=== PATIENT | female | born 1980 | race African-American/Black ===

== ENCOUNTER 2020-11-26 13:31 | Emergency (ER) | payer OTHER ==
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
--- NOTE | 2020-11-26 14:36 | EDPHYS ---
Physician Documentation [facility] Name: Zulema Simpson Age: 40 yrs Sex: Female : 1980 Arrival Date: 11/26/2020 Time: 13:46 Bed 13 Private MD: ED Physician Hansel Owen HPI: 11/26 14:31 This 40 yrs old Black Female presents to ER via Ambulatory with complaints of Finger jr8 Injury. 14:31 The patient or guardian reports decreased range of motion, pain. The complaints affect jr8 the DIP of left little finger and MCP of left little finger. Context: The problem was sustained at work. Onset: The symptoms/episode began/occurred acutely. Modifying factors: The symptoms are alleviated by nothing, the symptoms are aggravated by movement. Associated signs and symptoms: The patient has no apparent associated signs or symptoms. Severity of symptoms: At their worst the symptoms were mild, in the emergency department the symptoms are unchanged. The patient has not experienced similar symptoms in the past. The patient has not recently seen a physician. Stated that she fell down the stairs jamming her finger. Denies hitting head or neck. Denies pain anywhere else . Historical: - Allergies: 13:48 No Known Allergies; ss - Home Meds: 13:48 losartan oral oral [Active]; ss - PMHx: 13:48 Hypertension; ss - PSHx: 13:48 None; ss - Immunization history:: Adult Immunizations up to date. - Social history:: Smoking status: Patient denies any tobacco usage or history of. ROS: 14:31 Eyes: Negative for injury, pain, redness, and discharge, ENT: Negative for injury, jr8 pain, and discharge, Neck: Negative for injury, pain, and swelling, Cardiovascular: Negative for chest pain, palpitations, and edema, Respiratory: Negative for shortness of breath, cough, wheezing, and pleuritic chest pain, Abdomen/GI: Negative for abdominal pain, nausea, vomiting, diarrhea, and constipation, Back: Negative for injury and pain, Skin: Negative for injury, rash, and discoloration, Neuro: Negative for headache, weakness, numbness, tingling, and seizure. 14:31 MS/extremity: Positive for decreased range of motion, pain, tenderness, of the left little finger. Exam: 14:31 Constitutional: This is a well developed, well nourished patient who is awake, alert, jr8 and in no acute distress. Cardiovascular: Regular rate and rhythm with a normal S1 and S2. No gallops, murmurs, or rubs. Normal PMI, no JVD. No pulse deficits. Respiratory: Lungs have equal breath sounds bilaterally, clear to auscultation and percussion. No rales, rhonchi or wheezes noted. No increased work of breathing, no retractions or nasal flaring. Skin: Warm, dry with normal turgor. Normal color with no rashes, no lesions, and no evidence of cellulitis. Neuro: Awake and alert, GCS 15, oriented to person, place, time, and situation. Cranial nerves II-XII grossly intact. Motor strength 5/5 in all extremities. Sensory grossly intact. Cerebellar exam normal. Normal gait. 14:31 Musculoskeletal/extremity: Extremities: grossly normal except: noted in the left hand: Patient has flexion of the DIP to the 5th digit noted that is not baseline for patient. Tender to the PIP and MTP with decreased passive ROM. Full ROM with normal sensation and cap refill present . Vital Signs: 13:46 BP 119 / 63; Pulse 65; Resp 14; Temp 97.5(TE); Pulse Ox 98% on R/A; Weight 92.53 kg; ss Height 5 ft. 7 in. (170.18 cm); Pain 3/10; 13:46 Body Mass Index 31.95 (92.53 kg, 170.18 cm) Procedures: 14:31 Splinting: Splint applied to left little finger using finger splint, applied by nurse. jr8 Examined by me, post splint application: neurovascular intact, 2+ distal pulses palpable, brisk capillary refill noted, Patient tolerated well. MDM: 14:17 Patient medically screened. jr8 14:31 Data reviewed: vital signs, nurses notes, radiologic studies, plain films. Data jr8 interpreted: Pulse oximetry: on room air is 98 %. Interpretation: normal. Counseling: I had a detailed discussion with the patient and/or guardian regarding: the historical points, exam findings, and any diagnostic results supporting the discharge/admit diagnosis, radiology results, the need for outpatient follow up, a hand specialist, to return to the emergency department if symptoms worsen or persist or if there are any questions or concerns that arise at home. 05/01 13:49 Order name: XRAY Hand LEFT 3 View ss Administered Medications: No medications were administered Disposition: 15:12 Co-signature as Attending Physician, Hansel Owen MD. rn Disposition: 11/26/20 14:35 Discharged to Home. Impression: Sprain of interphalangeal joint of left little finger, Mallet finger. - Condition is Stable. - Discharge Instructions: Mallet Finger. - Prescriptions for Ibuprofen 800 mg Oral Tablet - take 1 tablet by ORAL route every 12 hours As needed take with food; 20 tablet. - Medication Reconciliation Form, Thank You Letter, Antibiotic Education, Prescription Opioid Use form. - Work release form (11/26/20 14:57). eb - Follow up: Mehdi Gutiérrez MD; When: 2 - 3 days; Reason: Recheck today's complaints, Continuance of care, Re-evaluation by your physician. - Problem is new. - Symptoms have improved. Signatures: Dispatcher [employer] EDMS Hansel Owen MD MD rn Smirch, Shelby, RN RN ss Roszak, Josh, PA PA jrAngi Howe RN RN zb Botello, Elizabeth eb Corrections: (The following items were deleted from the chart) 14:50 14:35 11/26/2020 14:35 Discharged to Home. Impression: Sprain of interphalangeal joint zb of left little finger; Mallet finger. Condition is Stable. Forms are Medication Reconciliation Form, Thank You Letter, Antibiotic Education, Prescription Opioid Use. Follow up: Mehdi Gutiérrez; When: 2 - 3 days; Reason: Recheck today's complaints, Continuance of care, Re-evaluation by your physician. Problem is new. Symptoms have improved. jr8
--- NOTE | 2020-11-26 14:36 | ER ---
Nurse's Notes [facility] Name: Zulema Simpson Age: 40 yrs Sex: Female : 1980 Arrival Date: 11/26/2020 Time: 13:46 Bed 13 Private MD: Diagnosis: Sprain of interphalangeal joint of left little finger;Mallet finger Presentation: 11/26 13:46 Chief complaint: Patient states: L fifth finger pain after slipping and falling at work ss around 1130 today. No obvious deformity noted. Coronavirus screen: Client denies travel out of the [place] in the last 14 days. Ebola Screen: Patient denies exposure to infectious person. Patient denies travel to an Ebola-affected area in the 21 days before illness onset. Initial Sepsis Screen: Does the patient meet any 2 criteria? No. Patient's initial sepsis screen is negative. Does the patient have a suspected source of infection? No. Patient's initial sepsis screen is negative. Risk Assessment: Do you want to hurt yourself or someone else? Patient reports no desire to harm self or others. Onset of symptoms was November 26, 2020. 13:46 Method Of Arrival: Ambulatory ss 13:46 Acuity: RAMY 4 ss Triage Assessment: 14:29 Injury Description: fall. zb Historical: - Allergies: 13:48 No Known Allergies; ss - Home Meds: 13:48 losartan oral oral [Active]; ss - PMHx: 13:48 Hypertension; ss - PSHx: 13:48 None; ss - Immunization history:: Adult Immunizations up to date. - Social history:: Smoking status: Patient denies any tobacco usage or history of. Screenin:29 Abuse screen: Denies threats or abuse. Denies injuries from another. Nutritional zb screening: No deficits noted. Tuberculosis screening: No symptoms or risk factors identified. Fall Risk None identified. Assessment: 14:25 Reassessment: ecp at bedside. zb 14:27 Reassessment:. General: Appears in no apparent distress. uncomfortable, Behavior is zb calm, cooperative, appropriate for age. Pain: Complains of pain in left little finger, dorsal aspect of middle phalanx of left little finger and dorsal aspect of proximal phalanx of left little finger Pain currently is 3 out of 10 on a pain scale. Quality of pain is described as sharp, shooting. Neuro: Level of Consciousness is awake, alert, obeys commands, Oriented to person, place, time, Gait is steady. Cardiovascular: Patient's skin is warm and dry. Respiratory: Airway is patent Respiratory effort is even, unlabored, Respiratory pattern is regular, agonal. Derm: Skin is intact, is healthy with good turgor. Musculoskeletal: Amputation of . Range of motion: intact in all extremities. 14:49 Reassessment: splint applied. d/c instructions given to patient. gait even and steady zb patient ambulated. out. Vital Signs: 13:46 BP 119 / 63; Pulse 65; Resp 14; Temp 97.5(TE); Pulse Ox 98% on R/A; Weight 92.53 kg; ss Height 5 ft. 7 in. (170.18 cm); Pain 3/10; 13:46 Body Mass Index 31.95 (92.53 kg, 170.18 cm) ED Course: 13:46 Patient arrived in ED. ss 13:47 Triage completed. ss 13:48 Arm band placed on right wrist. ss 14:07 XRAY Hand LEFT 3 View In Process Unspecified. EDCO 14:16 Juan Tao PA is PHCP. jr8 14:17 Hansel Owen MD is Attending Physician. jr8 14:22 Angi Almeida RN is Primary Nurse. zb 14:29 Patient has correct armband on for positive identification. Call light in reach. Side zb rails up X 1. Adult w/ patient. Door closed. Noise minimized. 14:34 Mehdi Gutiérrez MD is Referral Physician. jr8 14:49 No provider procedures requiring assistance completed. Patient did not have IV access zb during this emergency room visit. Administered Medications: No medications were administered Outcome: 14:35 Discharge ordered by . jr8 14:49 Discharged to home ambulatory. zb 14:49 Condition: stable 14:49 Discharge instructions given to patient, family, Instructed on discharge instructions, follow up and referral plans. medication usage, Demonstrated understanding of instructions, follow-up care, medications, Prescriptions given X 1. 14:50 Patient left the ED. zb Signatures: Dispatcher [facility] Blank Colmenares RN RN Juan Tao PA PA jr8 Angi Almeida, RN RN zb
--- NOTE | 2020-11-26 14:54 | RAD REPORT ---
EXAM DESCRIPTION: RAD - Hand Left 3 View - 11/26/2020 2:10 pm CLINICAL HISTORY: PAIN, trauma to left fifth digit COMPARISON: None. FINDINGS: No fracture, dislocation or periosteal reaction noted. IP joint space narrowing is present in the left hand more notable in the fifth digit. Spurring changes are present without erosion. MCP joint spaces are normal. No acute or pathologic bone or joint finding. No foreign body or other soft tissue abnormality. IMPRESSION: Left hand degenerative change as detailed. No fracture or acute finding.
[2020-11-26 14:57] VITALS: BP 119/63; TEMP 97.5; O2SAT 98
== END 2020-11-26 14:50 | disposition home or self-care (01) ==
LOC: ER 13:31
DX: S63.637A Sprain of interphalangeal joint of left little finger, initial encounter (principal); M20.012 Mallet finger of left finger(s); W10.8XXA Fall (on) (from) other stairs and steps, initial encounter; Y93.01 Activity, walking, marching and hiking; Y92.89 Other specified places as the place of occurrence of the external cause; Y99.8 Other external cause status; I10 Essential (primary) hypertension
CPT/HCPCS: 99283

== ENCOUNTER 2022-08-03 02:05 | Emergency (ER) | payer BC, OTHER ==
--- OUTSIDE RECORDS SUMMARY | 2022-08-03 02:09 | XMS REPORT | Continuity of Care Document ---
:1980 Author Organization [facility] t Address [address] [place] [address] [place] [id number] Care Team Providers Name Role Phone GIAN SON Primary Care Physician Unavailable SHARONA BRYAN Attending Clinician Unavailable Tory Gould Attending Clinician Casie Diaz RN Attending Clinician Unavailable TORY BRYSON Attending Clinician Unavailable Og Peck Attending Clinician Doctor Unassigned, [place] Attending Clinician Unavailable JIGNESH MONTANEZ MD Attending Clinician Payers Payer Name Policy Type Policy Effective Date Expiration Date Sour ce Number [facility] [id number] 2020 [employer] 00:00:[address] [facility] EFRA CARE NA 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 [facility] Anxiety Anxiety Problem Active [place] Memoria [...] lle strain strain [facility]ita [facility] No known No known Disease Unive rs active active ity of problems problems [facility] Allergies, Adverse Reactions, Alerts Allergy Allergy Status Severity Reaction(s) Onset Inactive Treating Comm ents Source Name Type Date Date Clinician NO KNOWN Drug Active Univers ALLERGIE Class ity of S [facility] NO KNOWN Allergy Active [facility] Social History Social Habit Start Date Stop Date Quantity Comments Source History SDOH [facility] Std Medical Cent[facility] r Drinks History SDOH [facility] Alcohol Binge Medical [address] History SDOH [facility] Alcohol Comment Medical C enter Exposure to Not sure [facility] SARS-CoV-2 [facility] (event) Branch Tobacco use and 2020-03-18 2020-03-[address] [facility] exposure 00:00:00 00:00:00 [facility] Alcohol intake 2020-03-18 2020-03-[address] 00:00:00 00:00:00 non-drinker of Medical Ce nter alcohol (finding) History SDOH 2020-03-18 2020-03-[address] [facility] Alcohol Frequency 00:00:00 00:00:00 [facility] Sex Assigned At [address] [facility] 00:00:00 00:00:00 [facility] Smoking Status Start Date Stop Date Source Unknown if ever smoked [facility] Never smoker [facility] Branch Medications Ordered Filled Start Stop Current Ordering Indication Dosage Frequency Signature Comments Components Source Medication Medication Date Date Medication? Clinician (SIG) Name Name losartan 2020-07 Yes Take by Snappli potassium 2-07 mouth. ity of (LOSARTAN 11:37: [place] ORAL) 19 Medical Branch losartan 2020-07 Yes Take by Snappli potassium 2-07 mouth. ity of (LOSARTAN 11:37: [place] ORAL) 19 Medical Branch losartan 2020-07 Yes Take by Snappli potassium 2-07 mouth. ity of (LOSARTAN 11:37: [place] ORAL) 19 Medical Branch ondansetron 2020-07 Yes [id number] 8mg Take 1 Univers (ZOFRAN 2-07 tablet by ity of ODT) 8 mg 00:00: mouth [place] disintegrat 00 every 8 Medic al ing tablet (eight) Branch hours as needed for Nausea and Vomiting (N/V). ondansetron 2020-07 Yes [id number] 8mg Take 1 Univers (ZOFRAN 2-07 tablet by ity of ODT) 8 mg 00:00: mouth [place] disintegrat 00 every 8 Medic al ing tablet (eight) Branch hours as needed for Nausea and Vomiting (N/V). ondansetron 2020-07 Yes [id number] 8mg Take 1 Univers (ZOFRAN 2-07 tablet by ity of ODT) 8 mg 00:00: mouth [place] disintegrat 00 every 8 Medic al ing tablet (eight) Branch hours as needed for Nausea and Vomiting (N/V). losartan Yes 50mg QD Take [address] (COZAAR) 50 6-10 by mouth Luke s MG tablet 00:00: daily. Medica l 00 [place] losartan 0 Yes 50mg QD Take [address] (COZAAR) 50 6-10 by mouth Luke s MG tablet 00:00: daily. Medica l 00 [place] losartan 0 Yes 50mg QD Take [address] (COZAAR) 50 6-10 by mouth Luke s MG tablet 00:00: daily. Medica l 00 [place] VITAMIN C 2019-0 Yes 1000mg QD Take 1,[address] 1000 MG 6-09 mg by Lukes tablet 00:00: mouth Medical 00 daily. [place] ferrous 2019-0 Yes 1{tbl} Q.[id number] Take [address] sulfate 325 6-09 [id number] tablet by Lukes (65 FE) MG 00:00: 3D mouth 3 Medi domenic tablet 00 (three) Center times daily. VITAMIN C 2020-0 Yes 1000mg QD Take 1,[address] 1000 MG 6-09 mg by Lukes tablet 00:00: mouth Medical 00 daily. [place] ferrous 2020-0 Yes 1{tbl} Q.03026486 Take [address] sulfate 325 6-09 [id number] tablet by Lukes (65 FE) MG 00:00: 3D mouth 3 Medi domenic tablet 00 (three) Center times daily. VITAMIN C 2020-0 Yes 1000mg QD Take 1,[address] 1000 MG 6-09 mg by Lukes tablet 00:00: mouth Medical 00 daily. [place] ferrous 2020-0 Yes 1{tbl} Q.[id number] Take [address] sulfate 325 6-09 [id number] tablet by Lukes (65 FE) MG 00:00: 3D mouth 3 Medi domenic tablet 00 (three) Center times daily. CYCLOBENZAP CYCLOBENZAP Yes Saul ACCOUNTING DIRECTOR-C 10 THREE TI ME [place] RINE HCL RINE HCL 3-18 [place] A l le (CYCLOBENZA (CYCLOBENZA 00:00: r DAY(09;15; Memoria DEJUAN 10 MG DEJUAN 10 MG 00 21) l TAB) 10 MG TAB) 10 MG Hos angle TAB TAB l IBUPROFEN IBUPROFEN Yes Saul ACCOUNTING DIRECTOR-C 600 EVERY [place] (MOTRIN 600 (MOTRIN 600 3-18 [place] EIGHT lle MG TAB) 600 MG TAB) 600 00:00: r HOURS Memoria MG TAB MG TAB 00 NEEDED as l needed for Hospita PAIN AND l INFLAMMATI ON TRAMADOL TRAMADOL Yes Saul ACCOUNTING DIRECTOR-C EVERY SIX [place] HCL HCL 3-18 [place] [...] D'ADDESIO A ll e (PHENAZOPYR (PHENAZOPYR 00:00: DAY(;; Memoria IDINE 200 IDINE 200 ) l MG TAB) 200 MG TAB) 200 H ospita MG MG l Tramadol Tramadol Yes MAE A 50 EVERY SIX [place] Hcl (ULTRAM Hcl (ULTRAM 4-04 ABBIE HOURS lle 50 MG TAB) 50 MG TAB) 00:00: NEEDED as Memoria 50 MG TAB 50 MG TAB 00 needed for l PAIN Hospita l CYCLOBENZAP CYCLOBENZAP Yes FRANKIE M 10 THREE TIME [place] RINE HCL RINE HCL 2-05 [place] A lle (CYCLOBENZA (CYCLOBENZA 00:00: DAY(; Memoria DEJUAN 10 MG DEJUAN 10 MG ) as l TAB) 10 MG TAB) [...] Hospita l FLUTICASONE FLUTICASONE 2014-07 Yes Saul ACCOUNTING DIRECTOR-C 1 EVERY DA Y [place] PROPIONATE PROPIONATE 2-01 [place] @ 0900 lle (NASAL) (NASAL) 00:00: r Memoria (FLUTICASON (FLUTICASON 00 l E NASAL E NASAL Hospita SPRAY) 50 SPRAY) 50 l MCG SPR MCG SPR IBUPROFEN IBUPROFEN 2014-07 Yes Saul ACCOUNTING DIRECTOR-C 600 EVERY SIX [place] (IBUPROFEN (IBUPROFEN 2 [place] HOURS lle 600 MG TAB) 600 [...] Time Observation Value Comments Source Systolic blood 2021-07-04 17:37:00 117 mm[Hg] Univer sity of pressure [facility] Diastolic blood 2021-07-04 17:37:00 78 mm[Hg] Unive rsity of pressure [facility] Heart rate 2021-07-04 17:37:00 66 /min [facility] Body temperature 2021-07-04 17:37:[address] [facility] Respiratory rate 2021-07-04 17:37:00 16 /min [facility] Body height 2021-07-04 17:37:00 170.2 cm [facility] Body weight 2021-07-04 17:37:00 96.48 kg [facility] BMI 2021-07-04 17:37:00 33.31 kg/m2 [facility] Oxygen saturation in 2021-07-04 17:37:00 96 /min [facility] blood by [facility] Pulse oximetry Branch HEIGHT 2020-03-18 00:00:00 170.2 cm WEIGHT 2020-03-18 00:00:00 99.655 kg Procedures Procedure Date / Time Performing Clinician Source Performed POCT RAPID FLU A AND B 2021-07-04 17:59:00 [facility] 2021-07-04 17:31:17 Doctor Unassigned, No [facility] Name [facility] POCT GRP A STREP 2021-07-04 00:00:00 Og Torres [facility] (MOLECULAR) [facility] CBCA W/PLT & AUTO 2018-04-14 00:00:00 [facility] COMPREHENSIVE METABOLIC 2018-04-14 00:00:00 [facility] B-HCG (QUANTITATIVES) 2018-04-14 00:00:00 [facility] ABO&RH (OB) 2018-04-14 00:00:00 [facility] US PELVIC NON OB 2018-04-14 00:00:00 [facility] CBCA W/PLT & AUTO 2018-03-13 00:00:00 [facility] COMPREHENSIVE METABOLIC 2018-03-13 00:00:00 [facility] LIPASE 2018-03-13 00:00:00 [facility] TROPONIN I 2018-03-13 00:00:00 [facility] SERUM TEST 2018-03-13 00:00:00 [facility] [place] ABDOMEN 2 VIEWS 2018-03-13 00:00:00 [facility] Plan of Care Planned Activity Planned Date Details Comments Source Future Scheduled 2022-03-[address] [facility] Test 00:00:00 (#1) [code = Medical Center INFLUENZA VACCINE (#1)] Future Scheduled 2021-07-[address] [facility] Test 00:00:00 (12+) [code = Medical Center DEPRESSION SCREENING (12+)] Future Scheduled 2021-03-[address] [facility] Test 00:00:00 (#1) [code = Medical Center INFLUENZA VACCINE (#1)] Future Scheduled 2021-03-[address] [facility] Test 00:00:00 (#1) [code = Medical Center INFLUENZA VACCINE (#1)] Future Scheduled 2021-03-[address] [facility] Test 00:00:00 [facility]ing [facility] Medical Cente r Screening (12+) [code = Tobacco Cessation Counseling and Screening (12+)] Future Scheduled 2020-07-[address] [facility] Test 00:00:00 (12+) [code = Medical Center DEPRESSION SCREENING (12+)] Future Scheduled 2020-07-[address] [facility] Test 00:00:00 (12+) [code = Medical Center DEPRESSION SCREENING (12+)] Future Scheduled [address] [facility] Test 00:00:00 malignant neoplasm of Medica l Center cervix (procedure) [code = 068542955] Future Scheduled [address] [facility] Test 00:00:00 malignant neoplasm of Medica l Center cervix (procedure) [code = 930419530] Future Scheduled [address] [facility] Test 00:00:00 malignant neoplasm of Medica l Center cervix (procedure) [code = 050988904] Future Scheduled [address] [facility] Test 00:00:00 (procedure) [code = [facility] 89202976] Future Scheduled [address] [facility] Test 00:00:00 (procedure) [code = [facility] 08611844] Future Scheduled [address] [facility] Test 00:00:00 (procedure) [code = [facility] 77212105] Future Scheduled 2001 DTAP/TDAP/TD VACCINES [facility] Test 00:00:00 (1 - Tdap) [code = Medical C enter DTAP/TDAP/TD VACCINES (1 - Tdap)] Future Scheduled 2001 DTAP/TDAP/TD VACCINES [facility] Test 00:00:00 (1 - Tdap) [code = Medical C enter DTAP/TDAP/TD VACCINES (1 - Tdap)] Future Scheduled 2001 DTAP/TDAP/TD VACCINES [facility] Test 00:00:00 (1 - Tdap) [code = Medical C enter DTAP/TDAP/TD VACCINES (1 - Tdap)] Future Scheduled 2000 HEPATITIS C SCREENING [facility] Test 00:00:00 [code = HEPATITIS C Medical Center SCREENING] Future Scheduled 2000 HEPATITIS C [facility]CRE[facility]ING [facility] Test 00:00:00 [code = HEPATITIS C Medical Center SCREENING] Future Scheduled 2000 HEPATITIS C [facility]CRE[facility]ING [facility] Test 00:00:00 [code = HEPATITIS C Medical Center SCREENING] Future Scheduled 1994 COVID-19 VACCINE (1) [facility] Test 00:00:00 [code = COVID-[address] VACCINE (1)] Future Scheduled 1994 COVID-19 VACCINE (1) [facility] Test 00:00:00 [code = COVID-[address] VACCINE (1)] Future Scheduled 1982 COVID-19 VACCINE (#1) [facility] Test 00:00:00 [code = COVID-[address] VACCINE (#1)] Encounters Start End Encounter Admission Attending Care Care Encounter Source Date/Time Date/Time Type Type Clinicians Facility Department ID 2021-07-06 2021-07-06 Outpatient [place] BRYAN [facility] [id number] Univers 16:00:00 16:00:00 SHARONA ity of [facility] 2021-07-05 2021-07-05 Telephone [place] [facility] [id number] Univers 00:00:00 00:00:00 Tory [facility] [id number] it y [facility] [id number] Farhan as GRAHAM?BLEA [phone] [address] MEDICAL OFFICE [facility] 2021-07-05 2021-07-05 Telephone Casie Diaz [id number] Univers 00:00:00 00:00:00 JEREMIAH [id number] it y of HOSPITAL [id number] Farhan as [id number] [facility] [address] 2021-07-04 2021-07-04 Outpatient R ADELAIDE [facility] [id number] Univers 11:40:00 11:53:55 [facility] 2021-07-04 2021-07-04 Urgent Tory Bryson [facility] [id number] Univers 11:32:25 11:53:55 [facility] Rania HEALTH [id number] ity of [place] [id number] Farhan as GRAHAM?BLEA [phone] [address] OFFICE [facility] 2021-07-04 2021-07-04 Orders Doctor EVANS [id number] Univers 00:00:00 00:00:00 Only Unassigned, JEREMIAH [id number] ity of [place] [facility] [id number] Farhan as [phone] [facility] [address] 2021-07-04 2021-07-04 Letter Doctor NATHAN [id number] Univers 00:00:00 00:00:00 (Out) Unassigned, JEREMIAH [id number] ity of [place] HOSPITAL [id number] Farhan as [phone] [facility] [address] 2020-03-18 2020-03-18 Emergency ER [facility] Emergency [id number] [facility] 08:50:00 08:50:00 2018-04-14 2018-04-14 Departed KIM MONTANEZ [facility] [id number] Mona 18:39:00 21:41:00 Emergency JIGNESH [address] [facility] 2018-03-13 2018-03-13 Departed KIM MONTANEZ [facility] [id number] Mona 02:33:00 05:00:00 Emergency JIGNESH 76 l[address] [facility] Hospita l Results Test Description Test Time Test Comments Results Result Comments Source POCT RAPID FLU A AND B TEST 2021-07-04 17:59:00 Test Item Value Reference Range Interpretation Comme nts POCT INFLUENZA A (test code = negative Negative - Negative 3840) POCT INFLUENZA B (test code = negative Negative - Negative 3841) DESTIN (test code = DESTIN) accurate development and interpretation of all internal controls Lab Interpretation (test code = Normal 78636-3) [place] [facility]2021-07-04 17:52:00 Test Item Value Reference Range Interpretation Comments POCT GP A STREP (test code = negative Negative - Negative 77461-2) [place] [facility] HCG, [id number] 20:26:00 Test Item Value Reference Range Interpretation Comments Beta HCG, Quantitative (test code = < 1 <1 41816-0) WEEKS POST LMP APPROXIMATE HCG(Last Menstrual Period) RANGE (mIU/mL) 3-4 WEEKS 5-100 4-5 WEEKS 200-3,000 5-6 WEEKS 10,000-80,000 7-14 WEEKS 90,000-500,000 15- 26 WEEKS 5,000-80,000 (2nd Trimester) 27-40 WEEKS 3,000-15,000 (3rd Trimester) Note: Above reflects approximate HCG ranges during normalpregnancy, as reported in the literature (Lara, 3rd.ed.,1998.) This assay is FDA approved only for the early detection ofpregnancyand should not be used in the diagnosis ofabnormal states not related to (i.e. trophoblasticor non-trophoblastic neoplasms, ectopic , etc.) without confirmation of the results by an a lternativemethod. False positive, consistently elevated, hCG resultshave been reported in a small group of patients and must beconsidered as a possible explanation for continuouslyelevated hCG levels in patients with no other evidence ofpregnancy.[facility] Center[facility] Urea [id number] 20:08:00 Test Item Value Reference Range Interpretation Comments Blood Urea Nitrogen (test code = 9 03-23 3094-0) [facility] CenterCreatinine2018-09-17 20:08:00 Test Item Value Reference Range Interpretation Comments Creatinine (test code = 2160-0) 0.6 0.44-1.00 [facility] CenterEGFR [id number] 20:08:00 Test Item Value Reference Range Interpretation Comments EGFR Note (test code = 83425-4) 111.8 63.8-143.2 eGFR (Estimated Glomerular Filtration Rate) eGFR calculation value obtained using the [facility] HospitalQuadratic (MCQ) equation. The reportable reference range isrecommended to be greater than 60 ml/min/1.73m. This is anestimation of the patient's GFR and clinical correlation isrecommended. This eGFR calculation does not account for race. This resultmay differ from other equations available. [facility] CenterAlbumin2018-09-17 20:08:00 Test Item Value Reference Range Interpretation Comments Albumin (test code = 1751-7) 4.4 3.5-5.0 [facility] CenterTotal [id number] 20:08:00 Test Item Value Reference Range Interpretation Comments Total Bilirubin (test code = 1975-2) 0.5 0.3-1.2 [facility] CenterAlkaline Lerupsiqrpj8825-04-57 20:08:00 Test Item Value Reference Range Interpretation Comments Alkaline Phosphatase (test code = 40 32-91 6768-6) [facility] CenterTotal [id number] 20:08:00 Test Item Value Reference Range Interpretation Comments Total Protein (test code = 2885-2) 8.0 6.5-8.1 [facility] CenterAlanine Aminotransferase (ALT/SGPT)2018-04-14 20:08:00 Test Item Value Reference Range Interpretation Comments Alanine Aminotransferase (ALT/SGPT) 14 7-55 (test code = 1742-6) [facility] CenterAspartate Amino Transf (AST/SGOT)2018-04-14 20:08:00 Test Item Value Reference Range Interpretation Comments Aspartate Amino Transf (AST/SGOT) (test 17 15- code = 1920-8) [facility] CenterGlobulin2018-09-17 20:08:00 Test Item Value Reference Range Interpretation Comments Globulin (test code = 55002-5) 3.6 2.3-3.5 H [facility] CenterAlbumin/Globulin [id number] 20:08:00 Test Item Value Reference Range Interpretation Comments Albumin/Globulin Ratio (test code = 1.2 1.2-2.2 1759-0) [facility] [id number] 20:02:00 Test Item Value Reference Range Interpretation Comments Sodium Level (test code = 2951-2) 138 135-144 [facility] CenterPotassium [id number] 20:02:00 Test Item Value Reference Range Interpretation Comments Potassium Level (test code = 2823-3) 3.1 3.5-5.1 L [facility] CenterChloride Auawr4004-10-12 20:02:00 Test Item Value Reference Range Interpretation Comments Chloride Level (test code = 2075-0) 106 101-111 [facility] CenterCarbon Dioxide [id number] 20:02:00 Test Item Value Reference Range Interpretation Comments Carbon Dioxide Level (test code = 24 22-32 8-9) [facility] CenterAnion [id number] 20:02:00 Test Item Value Reference Range Interpretation Comments Anion Gap (test code = 28364-1) 11.1 10-20 [facility] CenterGlucose [id number] 20:02:00 Test Item Value Reference Range Interpretation Comments Glucose Level (test code = 2345-7) 103 65-99 H Prediabetes 100 to 125 mg/dlDiabetes 126mg/dl or higher Prediabetes refers to individuals with plasma glucose levelsintermediate between those considered normal and thoseconsidered diabetic and is also referred to as impairedglucose tolerance (IGT) or impaired fasting glucose (IFG). [facility] CenterCalcium [id number] 20:02:00 Test Item Value Reference Range Interpretation Comments Calcium Level (test code = 85831-6) 9.3 8.9-10.3 [facility] CenterWhite Blood [id number] 19:55:00 Test Item Value Reference Range Interpretation Comments White Blood Count (test code = 6690-2) 6.8 4.8-10.8 [facility] CenterRed Blood [id number] 19:55:00 Test Item Value Reference Range Interpretation Comments Red Blood Count (test code = 789-8) 4.25 3.70-5.40 [facility] CenterHemoglobin2018-09-17 19:55:00 Test Item Value Reference Range Interpretation Comments Hemoglobin (test code = 718-7) 12.1 12.0-16.0 [facility] CenterHematocrit2018-09-17 19:55:00 Test Item Value Reference Range Interpretation Comments Hematocrit (test code = 91649-5) 37.2 37.0-47.0 [facility] CenterMean Corpuscular [id number] 19:55:00 Test Item Value Reference Range Interpretation Comments Mean Corpuscular Volume (test code = 87.6 80.0-100.0 88796-7) [facility] Corpuscular [id number] 19:55:00 Test Item Value Reference Range Interpretation Comments Mean Corpuscular Hemoglobin (test code 28.4 27.0-31.0 = 785-6) [facility] Corpuscular Hgb Concent [id number] 19:55:00 Test Item Value Reference Range Interpretation Comments Mean Corpuscular Hgb Concent Diff (test 32.5 32.0-36.0 code = 786-4) [facility] CenterRed Cell Distribution [id number] 19:55:00 Test Item Value Reference Range Interpretation Comments Red Cell Distribution Width (test code 15.4 11.5-14.5 H = 788-0) [facility] CenterPlatelet [id number] 19:55:00 Test Item Value Reference Range Interpretation Comments Platelet Count (test code = 777-3) 287 130-400 [facility] Platelet [id number] 19:55:00 Test Item Value Reference Range Interpretation Comments Mean Platelet Volume (test code = 9.4 7.4-10.4 74177-9) [facility] CenterGranulocytes (%)2018-04-14 19:55:00 Test Item Value Reference Range Interpretation Comments Granulocytes (%) (test code = 07749-0) 49.7 50.0-75.0 L [facility] CenterLymphocytes %2018-04-14 19:55:00 Test Item Value Reference Range Interpretation Comments Lymphocytes % (test code = 736-9) 41.2 20.0-40.0 H [facility] CenterMonocytes %2018-04-14 19:55:00 Test Item Value Reference Range Interpretation Comments Monocytes % (test code = 5905-5) 7.6 0.0-15.0 [facility] CenterEosinophils %2018-04-14 19:55:00 Test Item Value Reference Range Interpretation Comments Eosinophils % (test code = 713-8) 1.0 0.0-10.0 [facility] CenterBasophils %2018-04-14 19:55:00 Test Item Value Reference Range Interpretation Comments Basophils % (test code = 51710-0) 0.5 0.0-2.0 [facility] CenterGranulocytes #2018-04-14 19:55:00 Test Item Value Reference Range Interpretation Comments Granulocytes # (test code = 51635-6) 3.4 1.8-6.4 [facility] CenterLymphocytes #2018-04-14 19:55:00 Test Item Value Reference Range Interpretation Comments Lymphocytes # (test code = 32965-1) 2.8 1.2-3.6 [facility] CenterMonocytes #2018-04-14 19:55:00 Test Item Value Reference Range Interpretation Comments Monocytes # (test code = 742-7) 0.5 0.3-0.9 [facility] CenterEosinophils #2018-04-14 19:55:00 Test Item Value Reference Range Interpretation Comments Eosinophils # (test code = 711-2) 0.1 0.0-0.5 [facility] CenterBasophils #2018-04-14 19:55:00 Test Item Value Reference Range Interpretation Comments Basophils # (test code = 97758-6) 0.0 0.0-0.2 [facility] CenterManual Gzqvshkcdayo2100-37-01 19:55:00 Test Item Value Reference Range Interpretation Comments Manual Differential (test code = Manual NO Differential) [facility] CenterLipase2018-08-16 04:18:00 Test Item Value Reference Range Interpretation Comments Lipase (test code = 2572-6) 30 22-51 [facility] CenterTroponin [id number] 04:15:00 Test Item Value Reference Range Interpretation Comments Troponin I (test code = 04610-5) < 0.01 0.00-0.03 Troponin I-Interpretation Reference : <0.03 ng/mL NEGATIVE 0.04 - 0.49 ng/mL EQUIVOCAL = OR >0.5 ng/mL CONSISTENT WITH ACUTE MYOCARDIAL INJURY 98% of confirmed AMI patients will have at least one valuein a set or serial specimens >0.50 ng/ml. 99% of normals are between 0.0 - 0.10 ng/ml. Serial samples on a patient that are all <0.10 ng/mleffectively rules out AMI. Persistently increasedtroponin I values that are above theupper limit [...] considered a sign toinvestigate for other cardiac conditions. 3. Serial sampling is critical for accurate diagnosis.[facility] Hospitalerum HCG, [id number] 04:10:00 Test Item Value Reference Range Interpretation Comments Serum HCG, Qualitative (test code = NEGATIVE NEGATIVE 2118-8) [facility]
[2022-08-03] MEDS ORDERED: NA CHLORIDE 0.9% 1,000 ML ONE (02:42)
[2022-08-03] MEDS ORDERED: KETOROLAC 30 MG/ML INJ ONE (02:42)
[2022-08-03 03:10] LABS: Urine Blood Negative (Negative); Urine Glucose Negative (Negative); Urine Protein Negative (Negative); Urine Specific Gravity 1.025 (1.005-1.030)
[2022-08-03 03:13] LABS: Absolute Lymphocytes (CBC) 1.5 K/uL (0.7-4.9); Hematocrit 32.1 % (36.0-45.0); Lymphocytes % 21.3 % (15.3-44.8); MPV 8.6 fL (7.6-11.3); RBC Red Blood Cell Count 3.53 M/uL (3.86-4.86)
[2022-08-03 03:19] LABS: Urine Specific Gravity/Preg 1.025 (1.005-1.030)
[2022-08-03 03:37] LABS: Urine Bacteria 20-50 /HPF (<20); Urine RBC <5 /HPF (None Seen)
[2022-08-03 03:41] LABS: Albumin 3.5 g/dL (3.4-5.0); Bilirubin Total 0.3 mg/dL (0.2-1.0); Potassium 4.2 mmol/L (3.5-5.1); Protein, Total 7.3 g/dL (6.4-8.2); Troponin High Sensitivity 5.2 pg/mL (<58.9)
--- NOTE | 2022-08-03 05:02 | EDPHYS ---
Physician Documentation [facility] Name: Zulema Simpson Age: 42 yrs Sex: Female : 1980 Arrival Date: 08/03/2022 Time: 02:10 Bed 13 Private MD: ED Physician Laly Jaramillo HPI: 08/03 02:38 This 42 yrs old Black Female presents to ER via Ambulatory with complaints of Abdominal sd2 Pain, Flank Pain, Back Pain. 02:38 42 yo F presents with CC of R flank pain radiating around to RLQ of her abdomen since sd2 8PM last night. Reports pain started while she was eating dinner and has persisted despite taking Gas-X at home. Denies fever, nausea, vomiting or urinary symptoms. Denies chance of .. 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 - Social history:: Smoking status: Patient denies any tobacco usage or history of. ROS: 02:38 Constitutional: Negative for fever, chills, and weight loss, Eyes: Negative for injury, sd2 pain, redness, and discharge, Cardiovascular: Negative for chest pain, palpitations, and edema, Respiratory: Negative for shortness of breath, cough, wheezing. 02:38 : Negative for dysuria, urinary frequency, hesitancy, urgency and hematuria. MS/Extremity: Negative for injury and deformity, Skin: Negative for injury, rash, and discoloration, Neuro: Negative for headache, numbness and tingling. 02:38 Abdomen/GI: Positive for abdominal pain, Negative for nausea, vomiting, and diarrhea. 02:38 Back: Positive for flank pain, Negative for injury or acute deformity. Exam: 02:38 Constitutional: This is a well developed, well nourished patient who is awake, alert, sd2 and in no acute distress. Head/Face: Normocephalic, atraumatic. Eyes: EOMI, normal conjunctiva bilaterally Chest/axilla: Normal chest wall appearance and motion. Nontender with no deformity. Cardiovascular: Regular rate and rhythm with a normal S1 and S2. No gallops, murmurs, or rubs. 2+ distal pulses. Respiratory: Lungs have equal breath sounds bilaterally, clear to auscultation and percussion. No rales, rhonchi or wheezes noted. No increased work of breathing, no retractions or nasal flaring. Abdomen/GI: Soft, TTP of RLQ/RUQ and R flank with no rebound or guarding, no distention Back: No spinal tenderness. Right costovertebral tenderness. Full range of motion. Skin: Warm, dry with normal turgor. Normal color with no rashes, no lesions, and no evidence of cellulitis. MS/ Extremity: Pulses equal, no cyanosis. Neurovascular intact. Full, normal range of motion. Ambulatory without difficulty. Psych: Awake, alert, with orientation to person, place and time. Behavior, mood, and affect are within normal limits. 04:34 ECG was reviewed by the Attending Physician. Sinus bradycardia, rate 55, no STEMI sd2 criteria, T wave flattening noted in leads III, aVF, TWI in lead V3 Vital Signs: 02:13 BP 128 / 74; Pulse 64; Resp 18; Temp 97.7; Pulse Ox 99% ; Weight 97.52 kg; Height 5 ft. tw5 7 in. (170.18 cm); Pain 5/10; 02:13 Body Mass Index 33.67 (97.52 kg, 170.18 cm) tw5 MDM: 02:22 Patient medically screened. sd2 02:38 Differential diagnosis: Gastritis, cholecystitis, pancreatitis, SBO, diverticulitis, sd2 kidney stone, appendicitis, UTI, dehydration, electrolyte abnormality among others. Data reviewed: vital signs, nurses notes. 04:59 Data reviewed: lab test result(s), EKG, radiologic studies. Counseling: I had a sd2 detailed discussion with the patient and/or guardian regarding: the historical points, exam findings, and any diagnostic results supporting the discharge/admit diagnosis, lab results, radiology results, the need for outpatient follow up, to return to the emergency department if symptoms worsen or persist or if there are any questions or concerns that arise at home. ED course: Labs and imaging reviewed. Labs grossly WNCL. CTAP with cholelithiasis without evidence of cholecystitis. Pt feeling much improved after treatment with Toradol. Advised to follow up outpatient with PCP and General Surgery and make dietary modifications. Pt verbalizes understanding of discharge plan and strict return precautions at this time.. 08/03 02:37 Order name: CBC with Diff; Complete Time: 03:45 sd2 08/03 02:37 Order name: CMP; Complete Time: 03:45 sd2 08/03 02:37 Order name: Lipase; Complete Time: 03:45 sd2 08/03 02:37 Order name: Troponin High Sensitivity; Complete Time: 03:45 sd2 08/03 02:37 Order name: Urine Microscopic Only; Complete Time: 03:45 sd2 08/03 03:06 Order name: Urine --Ancillary (enter results); Complete Time: 03:45 wm 08/03 02:37 Order name: EKG - Nurse/Tech; Complete Time: 03:46 sd2 08/03 02:37 Order name: Urine Dipstick-Ancillary (obtain specimen); Complete Time: 03:02 sd2 08/03 02:37 Order name: Urine Test (obtain specimen); Complete Time: 03:02 sd2 08/03 02:37 Order name: CT Abd/Pelvis - IV Contrast Only sd2 08/03 03:10 Order name: Urine Dipstick-Ancillary; Complete Time: 03:45 EDMS Administered Medications: 03:01 Drug: NS 0.9% 1000 ml Route: IV; Rate: 1 bolus; Site: left antecubital; aa9 05:31 Follow up: Response: No adverse reaction; IV Status: Completed infusion; IV Intake: aa9 1000ml 03:02 Drug: Ketorolac 15 mg Route: IVP; Site: left antecubital; aa9 03:55 Follow up: Response: No adverse reaction; Pain is decreased aa9 Disposition Summary: 08/03/22 05:01 Discharge Ordered Location: Home sd2 Problem: new sd2 Symptoms: have improved sd2 Condition: Stable sd2 Diagnosis - Other cholelithiasis without obstruction sd2 Followup: sd2 - With: Private Physician - When: 2 - 3 days - Reason: Recheck today's complaints, Continuance of care, Re-evaluation by your physician Followup: sd2 - With: Roger Mata MD - When: 1 week - Reason: Recheck today's complaints, Continuance of care Discharge Instructions: - Discharge Summary Sheet sd2 - Cholelithiasis sd2 - Gallbladder Eating Plan sd2 Forms: - Medication Reconciliation Form sd2 - Thank You Letter sd2 - Antibiotic Education sd2 - Prescription Opioid Use sd2 Prescriptions: - Ibuprofen 800 mg Oral Tablet - take 1 tablet by ORAL route every 8 hours As needed take with food; 20 tablet; sd2 Refills: 0, Product Selection Permitted - Tylenol-Codeine #3 300 mg-30 mg Oral - take 1 tablet by ORAL route every 6 hours As needed; 12 tablet; Refills: 0, sd2 Product Selection Permitted Signatures: Dispatcher [employer] Leah Portillo tw5 Laly Jaramillo MD MD sd2 Anusha Aguilar RN RN aa9
--- NOTE | 2022-08-03 05:02 | ER ---
Nurse's Notes [facility] Name: Zulema Simpson Age: 42 yrs Sex: Female : 1980 Arrival Date: 08/03/2022 Time: 02:10 Bed 13 Private MD: Diagnosis: Other cholelithiasis without obstruction Presentation: 08/03 02:13 Chief complaint: Patient states: "My right side started hurting around 8 PM. I thought tw5 it was gas so I took some gas x, but the pain has only getting worse. ". Coronavirus screen: Vaccine status: Patient reports receiving the 2nd dose of the covid vaccine. Moderna. Ebola Screen: Patient negative for fever greater than or equal to 101.5 degrees Fahrenheit, and additional compatible Ebola Virus Disease symptoms Patient denies exposure to infectious person. Patient denies travel to an Ebola-affected area in the 21 days before illness onset. Initial Sepsis Screen: Does the patient meet any 2 criteria? No. Patient's initial sepsis screen is negative. Does the patient have a suspected source of infection? No. Patient's initial sepsis screen is negative. Risk Assessment: Do you want to hurt yourself or someone else? Patient reports no desire to harm self or others. Onset of symptoms was August 02, 2022 at 20:00. 02:13 Method Of Arrival: Ambulatory tw5 02:13 Acuity: RAMY 3 tw5 Triage Assessment: 02:14 General: Appears uncomfortable, Behavior is calm, cooperative, appropriate for age. tw5 Pain: Complains of pain in anterior aspect of right lateral abdomen Pain currently is 5 out of 10 on a pain scale. GI: Patient currently denies diarrhea, nausea. 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 - Social history:: Smoking status: Patient denies any tobacco usage or history of. Screenin:03 Abuse screen: Denies threats or abuse. Denies injuries from another. Nutritional aa9 screening: No deficits noted. Tuberculosis screening: No symptoms or risk factors identified. Assessment: 03:02 General: Appears in no apparent distress. Behavior is calm, cooperative, appropriate aa9 for age. Neuro: Level of Consciousness is awake, alert, obeys commands, Oriented to person, place, time, situation. Cardiovascular: Patient's skin is warm and dry. Respiratory: Airway is patent Respiratory effort is even, unlabored. GI: Patient currently denies nausea, vomiting. : Denies burning with urination. Derm: Skin is intact, is healthy with good turgor. 05:30 GI: Bowel sounds present X 4 quads. aa9 Vital Signs: 02:13 BP 128 / 74; Pulse 64; Resp 18; Temp 97.7; Pulse Ox 99% ; Weight 97.52 kg; Height 5 ft. tw5 7 in. (170.18 cm); Pain 5/10; 02:13 Body Mass Index 33.67 (97.52 kg, 170.18 cm) tw5 ED Course: 02:10 Patient arrived in ED. ja2 02:14 Triage completed. tw5 02:14 Arm band placed on. tw5 02:22 Laly Jaramillo MD is Attending Physician. sd2 02:58 Missed attempt(s): 20 gauge in right antecubital area. Bleeding controlled, band aid aa9 applied, catheter tip intact. 03:02 Inserted saline lock: 20 gauge in left antecubital area, using aseptic technique. aa9 03:03 Patient has correct armband on for positive identification. Call light in reach. Adult aa9 w/ patient. 03:04 Troponin High Sensitivity Sent. aa9 03:04 Lipase Sent. aa9 03:04 CMP Sent. aa9 03:04 CBC with Diff Sent. aa9 04:12 CT Abd/Pelvis - IV Contrast Only In Process Unspecified. EDMS 05:01 Roger Mata MD is Referral Physician. sd2 05:30 No provider procedures requiring assistance completed. IV discontinued, intact, aa9 bleeding controlled, No redness/swelling at site. Pressure dressing applied. Administered Medications: 03:01 Drug: NS 0.9% 1000 ml Route: IV; Rate: 1 bolus; Site: left antecubital; aa9 05:31 Follow up: Response: No adverse reaction; IV Status: Completed infusion; IV Intake: aa9 1000ml 03:02 Drug: Ketorolac 15 mg Route: IVP; Site: left antecubital; aa9 03:55 Follow up: Response: No adverse reaction; Pain is decreased aa9 Medication: 05:30 VIS not applicable for this client. aa9 Intake: 05:31 IV: 1000ml; Total: 1000ml. aa9 Outcome: 05:01 Discharge ordered by . sd2 05:30 Discharged to home ambulatory, with family. aa9 05:30 Condition: stable 05:30 Discharge instructions given to patient, family, Instructed on discharge instructions, follow up and referral plans. medication usage, Demonstrated understanding of instructions, follow-up care, medications, Prescriptions given X 2. 05:31 Patient left the ED. aa9 Signatures: Dispatcher [employer] EDMS Sarai Pichardo Tiffany tw5 Laly Jaramillo MD MD sd2 Anusha Aguilar, RN RN aa9
[2022-08-03 05:46] VITALS: BP 128/74; TEMP 97.7; O2SAT 99
--- NOTE | 2022-08-04 12:00 | RAD REPORT ---
EXAM DESCRIPTION: CT - Abdomen Pelvis W Contrast - 08/03/2022 5:27 am CLINICAL HISTORY: 42 years Female RLQ abdominal pain TECHNIQUE: Axial CT imaging of the abdomen and pelvis was performed following the administration of intravenous contrast.. Oral contrast was not administered. Sagittal and coronal reconstructed image s were then performed. The CT study is performed according to ALARA (as low as reasonably achievabl e) or ALARA/IMAGE GENTLY, with automatic adjustment of mA and/or kV according to patient size. Performed on: 08/03/2022 at 4:06 AM. COMPARISON: No prior studies are available for comparison.. FINDINGS: Lung bases: The lung bases are clear. Liver: The liver measures approximately 18.6 cm in craniocaudal dimension. No focal hepatic abnormali ties are identified. Liver attenuation is within normal limits. The hepatic and portal veins are watts nt. Spleen: The spleen is normal in size, configuration and attenuation. Gallbladder and bile duct: The gallbladder is well-distended and contains areas of increased attenu ation likely reflecting gallstones. There is no biliary ductal dilatation. Pancreas: The pancreas is grossly normal in size and configuration. Adrenal Glands: The adrenal glands are normal in size and configuration. Kidneys: The kidneys are normal in size and configuration. There is no evidence of hydronephrosis. Th ere is no evidence of nephrolithiasis. No definite solid or cystic renal mass lesions are identified. Stomach: The stomach is grossly normal. There is no definite hiatal hernia. Bowel: The bowel gas pattern is non specific and non obstructive. Appendix: The appendix is normal. Free air: There is no evidence of free air. Free fluid: There is no evidence of free fluid. Vasculature: The aorta is normal in caliber and contour. The inferior vena cava is grossly unremarkab le. Lymphadenopathy: No pathologic lymphadenopathy is identified. Bladder: The bladder is partially distended and smooth in contour. Reproductive: The uterus is grossly within normal limits. Bones: No acute osseous abnormalities are identified. Soft tissues: No acute soft tissue abnormalities are identified. There is a small fat-containing vent ral umbilical hernia. IMPRESSION: 1. No evidence of acute intra-abdominal or intrapelvic pathology. There is no CT evide nce of acute appendicitis or urinary tract obstruction. 2. Cholelithiasis without evidence of biliary ductal dilatation. 3. Small fat-containing ventral umbilical hernia. Electronically signed by: Laurie Sánchez DO 08/03/2022 4:49 AM PROCESS OPERATOR Due to temporary technical issues with the PACS/Fluency reporting system, reports are being signed by the in house radiologists without review as a courtesy to insure prompt reporting. The interpreting radiologist is fully responsible for the content of the report.
--- NOTE | 2022-08-04 17:41 | EKG ---
Test Date: 2022-08-03 Test Time: 03:33:40 Chemistry Associate: MAEVE MEASUREMENT RESULTS: Intervals: Rate: 55 DE: 172 QRSD: 82 QT: 432 QTc: 413 [place]: P: 69 DE: 172 QRS: 21 T: -4 INTERPRETIVE STATEMENTS: Sinus bradycardia Nonspecific T wave abnormality Abnormal ECG No previous ECG available for comparison Electronically Signed On 08-04-22 17:39:47 DETASSELER by Isai Banks
== END 2022-08-03 05:31 | disposition home or self-care (01) ==
LOC: ER 02:05
DX: K80.80 Other cholelithiasis without obstruction (principal); I10 Essential (primary) hypertension
CPT/HCPCS: 96361; 93005; 85025; 36415; 81025; 84484; 83690; 80053; 74177; 96374; 99284; Q9967; J7030; 81003; 81015

== ENCOUNTER 2022-08-31 08:28 | Day surgery (SDC) | payer BC, OTHER ==
[2022-08-31] MEDS ORDERED: CEFOXITIN SODIUM 2 GM/VIAL ONE (08:48)
[2022-08-31] MEDS ORDERED: Ringers Lactate 1,000 ML IV ONE ×2 (08:48→11:53)
[2022-08-31 08:50] LABS: Urine Specific Gravity/Preg >1.030 (1.005-1.030)
[2022-08-31] MEDS ORDERED: BUPIVACAINE 0.25% PF 10 ML VIAL ONE ×2 (09:48→09:49)
[2022-08-31] MEDS ORDERED: BUPIVACAINE 0.25% PF 30 ML VIAL ONE (10:20)
[2022-08-31] MEDS ORDERED: MIDAZOLAM HCL 2 MG/2 ML INJ ONE (10:28)
[2022-08-31] MEDS ORDERED: FENTANYL CITR 100 MCG/2 ML ONE ×2 (10:28→11:09)
[2022-08-31] MEDS ORDERED: ROCURONIUM 50 MG/5 ML VIAL IV ONE (10:28)
[2022-08-31] MEDS ORDERED: propofoL 200 MG/20 ML VIAL IV ONE (10:28)
[2022-08-31] MEDS ORDERED: dexAMETHasone 10 MG/ML VIAL ONE (10:28)
[2022-08-31] MEDS ORDERED: KETOROLAC 30 MG/ML INJ ONE (10:30)
[2022-08-31] MEDS ORDERED: ONDANSETRON 4 MG/2 ML VIAL ONE (10:30)
[2022-08-31] MEDS ORDERED: LIDOCAINE 2% MPF 5 ML VIAL ONE (10:30)
[2022-08-31] MEDS ORDERED: GLYCOPYRROLATE 0.2 MG/ML SYR ONE (11:37)
--- NOTE | 2022-08-31 11:42 | P.OP ---
Night Custodian: IZZY HUTCHINSON Preoperative diagnosis: Cholecystitis Postoperative diagnosis: Cholecystitis Primary procedure: Laparoscopic Cholecystectomy with ICG Cholangiography Anesthesia: GETA + Local Estimated blood loss: <5cc Specimen: Gallbladder Findings: Common duct parallell to cystic course Complications: None Transferred to: Recovery Room Condition: Good
[2022-08-31] MEDS ORDERED: NEOSTIGMINE 1 MG/ML -5 ML ONE (11:43)
[2022-08-31] MEDS ORDERED: MORPHINE 4 MG/ML SYR ONE (12:26)
[2022-08-31 12:33] VITALS: O2SAT 98
[2022-08-31] MEDS: HYDROCODONE/APAP 10/325 TAB ONE ×2 (13:07→13:12)
[2022-08-31 14:27] VITALS: BP 129/92; TEMP 97.1
--- NOTE | 2022-08-31 22:44 | OP ---
Date of Procedure: 08/31/2022 Surgeon: Polo Tolliver MD, Preoperative Diagnosis: Cholecystitis. Postoperative Diagnosis: Cholecystitis. Procedure Performed: Laparoscopic cholecystectomy with indocyanine green cholangiography. Anesthesia: General endotracheal plus local with 0.25% Marcaine. Estimated Blood Loss: Less than 5 cc. Specimen: Gallbladder. Findings: Common duct ran parallel to cystic duct for a long course with a very well visualized bifu rcation. Umbilical hernia. Complications: None. Disposition: The patient transferred to recovery room in good condition. Procedure In Detail: After informed consent was obtained, patient was brought to the operating room, prepped in the usual sterile fashion. After adequate anesthesia was achieved, anesthetized the area of the supraumbilical position. Made an incision and a 5 mm 0-degree optical trocar was introduced in the abdomen without evidence of complication. Insufflation was obtained to 15 mmHg at this time. There was no injury to vital structures upon entering the abdomen. Two additional trocars were plac ed, one in the epigastrium, one in the right upper quadrant. Both of these were similarly anesthetiz ed, sharply incised. A 5 mm trocar was placed under direct visualization without evidence of complic ation. The patient had the umbilical trocar upsized to 12 mm under direct visualization without evid ence of complication. The patient was positioned in the head up right-side up position. Ratcheted g rasper was used to grasp the patient's gallbladder, and placed toward the patient's right shoulder. I continued my dissection down near the Sinai pouch of the gallbladder. Ultimately encircling 2 s tructures, identified as both the cystic duct and cystic artery. I performed indocyanine green chola ngiography and noted there was a close proximity of the common duct cystic duct junction. They ran i n a parallel course ultimately bifurcating which was easily visualized, but an obvious anatomic varia nt was noted. This did not complicate the procedure as the critical view of safety was obtained. At this point, the critical view of safety was obtained. The structure was skeletonized and placed thomas ble titanium clips on the proximal side singly on the distal side of both the cystic duct and cystic artery. These structures were ligated with Endo Shakila without evidence of complication. The gallbl adder was then removed from the hepatic fossa without evidence of complication, required no additiona l hemostatic maneuvers. Gallbladder was then placed in EndoCatch bag, removed through the umbilical trocar site for pathologic examination. The area was then copiously irrigated, suctioned out until c ompletely clear. The clips were found to be in good anatomic position without any spillage of blood or bile at the end of the procedure. Patient positioned back in neutral position. Remaining effluen t was suctioned out. The umbilical trocar site was then closed using a Brown-Florentin suture passer with 0 Vicryl interrupted fashion with good approximation of tissues. The abdomen was completely de sufflated under direct vision without evidence of complication. Remaining trocars were removed. All skin incisions were copiously irrigated and closed with 4-0 Monocryl fashion. Dermabond was placed over top. Patient tolerated the procedure well without evidence of complication and transferred to P ACU in good condition. All counts were correct at the end of the case. LAI/SADIA Voice ID: [id number] Report ID: [id number]
== END 2022-08-31 13:26 | disposition home or self-care (01) ==
LOC: OR 08:28
PROVIDERS: ATTEND Surgery
PROC: BF53200 Other Imaging of Gallbladder and Bile Ducts using Fluorescing Agent, Indocyanine Green Dye, Intraoperative (ICD-10-PCS; 2022-08-31)
PROC: 0FT44ZZ Resection of Gallbladder, Percutaneous Endoscopic Approach (ICD-10-PCS; principal; 2022-08-31 09:30)
DX: K80.10 Calculus of gallbladder with chronic cholecystitis without obstruction (principal)
CPT/HCPCS: 81025; 88304; 47563; J2704; J2001; J2250; J3010 ×2; J1100; J2710; J7120 ×2; J0694; J2405

== ENCOUNTER 2024-09-19 18:58 | Emergency (ER) | payer BC ==
--- NOTE | 2024-09-19 19:20 | EDPHYS ---
Physician Documentation [facility] Name: Zulema Arroyo Age: 44 yrs Sex: Female : 1980 Arrival Date: 09/19/2024 Time: 18:58 Bed IW2 Private MD: ED Physician Schuyler Ramos HPI: 09/19 19:06 This 44 yrs old Black Female presents to ER via Unassigned with complaints of Sore ms3 Throat, Ear Pain. 19:22 44-year-old female with past medical history of hypertension presents to the emergency ms3 department for right ear pain and right-sided throat pain. Patient states she has had the symptoms for 3 days. Patient describes her pain as an 8.5/10. She denies nausea, vomiting, fevers, chills. Patient notes she did have the flu and a sinus infection 2 weeks ago.. 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 - Infectious Disease History:: Denies. - Social history:: Smoking status: Patient denies any tobacco usage or history of. Patient/guardian denies using alcohol, street drugs. ROS: 19:22 Constitutional: Negative for fever, and chills. Cardiovascular: Negative for chest ms3 pain, and palpitations. Respiratory: Negative for shortness of breath, cough, wheezing, and pleuritic chest pain, Abdomen/GI: Negative for abdominal pain, nausea, vomiting, diarrhea, and constipation, MS/Extremity: Negative for injury and deformity, Skin: Negative for injury, rash, and discoloration, 19:22 ENT: Positive for ear pain, sore throat, Exam: 19:22 Constitutional: This is a well developed, well nourished patient who is awake, alert, ms3 and in no acute distress. Cardiovascular: Regular rate and rhythm with a normal S1 and S2. No gallops, murmurs, or rubs. Normal PMI, no JVD. No pulse deficits. Respiratory: Lungs have equal breath sounds bilaterally, clear to auscultation and percussion. No rales, rhonchi or wheezes noted. No increased work of breathing, no retractions or nasal flaring. Abdomen/GI: Soft, non-tender, with normal bowel sounds. No distension or tympany. No guarding or rebound. No evidence of tenderness throughout. Skin: Warm, dry with normal turgor. Normal color with no rashes, no lesions, and no evidence of cellulitis. MS/ Extremity: Pulses equal, no cyanosis. Neurovascular intact. Full, normal range of motion. 19:22 ENT: External ear(s): are unremarkable, Ear canal(s): are normal, TM's: dullness, on ms3 the right, fluid levels, on the right, Mastoid non-tender to palpation, Posterior pharynx: Tonsils: are normal in appearance, Uvula: normal, swelling, is not appreciated, erythema, is not appreciated, exudate, is not appreciated, peritonsillar mass, is not appreciated, Vital Signs: 19:14 BP 153 / 93; Pulse 72; Resp 16 S; Temp 97.7(TE); Pulse Ox 100% on R/A; Weight 95.25 kg lg3 (R); Height 5 ft. 7 in. (R); Pain 8/10; 19:14 Body Mass Index 32.89 (95.25 kg, 170.18 cm) lg3 19:14 Pain Scale: Adult lg3 MDM: 19:19 Medical Screening Exam initiated ms3 19:22 Differential diagnosis: upper respiratory infection, viral syndrome Otitis media. ms3 19:26 Data reviewed: vital signs, nurses notes, and as a result, I will discharge patient. I ms3 considered the following discharge prescriptions or medication management in the emergency department See Rx. Counseling: I had a detailed discussion with the patient and/or guardian regarding the historical points, exam findings, and any diagnostic results supporting the discharge/admit diagnosis, the need for outpatient follow up, to return to the emergency department if symptoms worsen or persist or if there are any questions or concerns that arise at home. Special discussion: I discussed with the patient/guardian in detail that at this point there is no indication for admission to the hospital. It is understood, however, that if the symptoms persist or worsen the patient needs to return immediately for re-evaluation. ED course: Discussed physical exam findings with the patient. Patient's right mastoid nontender to palpation, tonsils without erythema or exudates. Uvula midline. No signs of peritonsillar or retropharyngeal abscess. Patient to follow-up Dr. Anaya in 2 days. Patient understands and agrees with plan. All questions were answered. Return precautions discussed include worsening symptoms, or any other concerns.. Administered Medications: No medications were administered Disposition Summary: 09/19/24 19:19 Discharge Ordered Notes: Location: Home ms3 Condition: Stable ms3 Diagnosis - Acute serous otitis media, right ear ms3 Followup: ms3 - With: Robb Anaya DO - When: 2 - 3 days - Reason: Recheck today's complaints Discharge Instructions: - Discharge Summary Sheet ms3 - Otitis Media, Adult ms3 Forms: - Medication Reconciliation Form ms3 - Antibiotic Education ms3 - Prescription Opioid Use ms3 - Patient Portal Instructions ms3 - Leadership Thank You Letter ms3 Prescriptions: - Flonase Allergy Relief 50 mcg/actuation Nasal spray, suspension - spray 1 spray INTRANASAL route every 12 hours administer into each nostril; 5.9 ms3 milliliter; Refills: 0, Product Selection Permitted - Amoxicillin 875 mg Oral Tablet - take 1 tablet ORAL route every 12 hours for 10 days; 20 tablet; Refills: 0, ms3 Product Selection Permitted - Claritin 10 mg Oral Tablet - take 1 tablet ORAL route once daily As needed; 30 tablet; Refills: 0, Product ms3 Selection Permitted Signatures: Dispatcher [employer] Sandra Huitron RN RN lg3 Schuyler Ramos DO DO ms3
--- NOTE | 2024-09-19 19:20 | ER ---
Nurse's Notes [facility] Name: Zulema Arroyo Age: 44 yrs Sex: Female : 1980 Arrival Date: 09/19/2024 Time: 18:58 Bed IW2 Private MD: Diagnosis: Acute serous otitis media, right ear Presentation: 09/19 19:14 Chief complaint: Patient states: sore throat and right ear pain X3 days. Coronavirus lg3 screen: Client denies travel out of the [place] in the last 14 days. At this time, the client does not indicate any symptoms associated with coronavirus-19. Ebola Screen: No symptoms or risks identified at this time. Initial Sepsis Screen: Does the patient meet any 2 criteria? No. Patient's initial sepsis screen is negative. Does the patient have a suspected source of infection? No. Patient's initial sepsis screen is negative. Risk Assessment: Do you want to hurt yourself or someone else? Patient reports no desire to harm self or others. Onset of symptoms was September 16, 2024. 19:14 Method Of Arrival: Ambulatory lg3 19:14 Acuity: RAMY 4 lg3 Triage Assessment: 19:17 General: Appears in no apparent distress. uncomfortable, Behavior is calm, cooperative. lg3 Pain: Complains of pain in right ear. EENT: Reports pain in right ear when swallowing. Neuro: No deficits noted. Garcia Agitation-Sedation Scale (RASS): 0 - Alert and Calm Level of Consciousness is awake, alert, obeys commands, Oriented to person, place, time, situation. Cardiovascular: No deficits noted. Denies chest pain, shortness of breath, Capillary refill < 3 seconds Clubbing of nail beds is absent JVD is absent Patient's skin is warm and dry. Respiratory: No deficits noted. Airway is patent Respiratory effort is even, unlabored, Respiratory pattern is regular, symmetrical. GI: No deficits noted. No signs and/or symptoms were reported involving the gastrointestinal system. Abdomen is round non-distended. : No deficits noted. No signs and/or symptoms were reported regarding the genitourinary system. Derm: No deficits noted. No signs and/or symptoms reported regarding the dermatologic system. Skin is intact, is healthy with good turgor, Skin is dry, Skin is normal, Skin temperature is warm. Musculoskeletal: No deficits noted. No signs and/or symptoms reported regarding the musculoskeletal system. Circulation, motion, and sensation intact. Range of motion: intact in all extremities. 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 - Infectious Disease History:: Denies. - Social history:: Smoking status: Patient denies any tobacco usage or history of. Patient/guardian denies using alcohol, street drugs. Screenin:19 [facility] ED Fall Risk Assessment (Adult) History of falling in the last 3 months, lg3 including since admission No falls in past 3 months (0 pts) Confusion or Disorientation No (0 pts) Intoxicated or Sedated No (0 pts) Impaired Gait No (0 pts) Mobility Assist Device Used No (0 pt) Altered Elimination No (0 pt) Score/Fall Risk Level 0 - 2 = Low Risk Oriented to surroundings, Maintained a safe environment, Educated pt \T\ family on fall prevention, incl call for assistance when getting out of bed, Assessed \T\ reinforced patient's understanding of fall precautions. Abuse screen: Denies threats or abuse. Denies injuries from another. Nutritional screening: No deficits noted. Tuberculosis screening: No symptoms or risk factors identified. Assessment: 19:19 General: see triage assessment. Respiratory: Airway is patent Respiratory effort is lg3 even, unlabored, Respiratory pattern is regular, symmetrical, Breath sounds are clear bilaterally. 19:25 EENT: Throat is clear. lg3 Vital Signs: 19:14 BP 153 / 93; Pulse 72; Resp 16 S; Temp 97.7(TE); Pulse Ox 100% on R/A; Weight 95.25 kg lg3 (R); Height 5 ft. 7 in. (R); Pain 8/10; 19:14 Body Mass Index 32.89 (95.25 kg, 170.18 cm) lg3 19:14 Pain Scale: Adult 3 ED Course: 19:01 Patient arrived in ED. im 19:04 Schuyler Ramos DO is Attending Physician. ms3 19:17 Triage completed. lg3 19:17 Arm band placed on right wrist. lg3 19:19 Robb Anaya DO is Referral Physician. ms3 19:19 Patient has correct armband on for positive identification. lg3 19:19 No provider procedures requiring assistance completed. Patient did not have IV access lg3 during this emergency room visit. Administered Medications: No medications were administered Medication: 19:19 VIS not applicable for this client. lg3 Outcome: 19:19 Discharge ordered by MD. ms3 19:25 Discharged to home ambulatory, lg3 19:25 Condition: stable 19:25 Discharge instructions given to patient, Instructed on discharge instructions, follow up and referral plans. medication usage, Demonstrated understanding of instructions, follow-up care, medications, Prescriptions given X 3, 19:25 Patient left the ED. lg3 Signatures: Sandra Wiggins RN RN lg3 Schuyler Ramos DO DO ms3 Gwen Jansen im
[2024-09-19 20:10] VITALS: BP 153/93; TEMP 97.7; O2SAT 100
== END 2024-09-19 19:25 | disposition home or self-care (01) ==
LOC: ER 18:58
DX: H65.01 Acute serous otitis media, right ear (principal); R07.0 Pain in throat; I10 Essential (primary) hypertension
CPT/HCPCS: 99283